=== PATIENT | female | born 1995 | race Caucasian/White ===

== ENCOUNTER 2021-06-27 16:24 | Emergency (ER) | payer OTHER, SELFPAY | END 2021-06-27 16:31 | disposition left against medical advice (07) | LOC: EXPCOLL 16:29 | PROVIDERS: Emergency Provider Nurse Practitioner | DX: Z53.21 Procedure and treatment not carried out due to patient leaving prior to being seen by health care provider (principal) | CPT/HCPCS: 99199 ==

== ENCOUNTER 2021-09-23 16:30 | Outpatient (RCR) | payer OTHER, SELFPAY ==
--- NOTE | 2021-08-31 17:09 | PTOPEVAL ---
Thank you for referring Arielle Lopez to [facility].? The patient is scheduled to be seen for therapy?2x/week for 8 weeks. Please review, sign, date and return this plan of care ANTHONY. I agree with and certify that the following plan of care is medically necessary. 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 She c/o swelling of left knee. She reports limitations with car transfers, mild limitations with steps and squatting motion. Reports only mild pain at night. Does not perform a fitness program. Pain Assessment Timing of Pain Assessment Timing of Pain Assessment Assessment Pain Scale Pain Scale Used Numeric (1 - 10) Self Report Pain Assessment Left Knee(s) Reported Pain Level 3 Pain Description Stabbing Pain Frequency Continuous Lowest Pain Intensity 0 Greatest Pain Intensity 3 Pain Aggravating Factors Exercise/Activity,Stair Climbing Pain Score Pain Score 3: Self Report Interventions Used Interventions Used By Clinicians Education,Exercise Pain Relief Interventions Used By Medication Patient Lower Extremity Range of Motion Knee Range of Motion Left Knee Flexion Range of Motion - Active 68 Knee Flexion Range of Motion - Passive 115 Knee Extension Range of Motion - Active 0 Knee Range of Motion Limitations Pain Knee Range of Motion Comments right knee flex: 115 dg Lower Extremity Muscle Strength Testing Hip Strength Right Hip Flexion Strength 4+ Good + Hip Extension Strength 4 Good Hip Abduction Strength 3 Fair Left Hip Flexion Strength 4 Good Hip Extension Strength 3- Fair - Hip Abduction Strength 3- Fair - Knee Strength Right Knee Flexion Strength 4+ Good + Knee Extension Strength 5 Normal Left Knee Flexion Strength 3+ Fair + Knee Extension Strength 5 Normal Ankle Strength Bilateral Ankle Dorsiflexion Strength 5 Normal Muscle Length Testing Muscle Length Testing Two-Joint Hip Flexor Shortened Muscles Short (R) Iliopsoas,Short (L) Iliopsoas,Short (R) Rectus Femor
--- NOTE | 2021-09-23 17:00 | PTOPEVAL ---
Physical Therapy Discharge Summary Thank you for referring Arielle Lopez to [facility].? Arielle has attended 6 therapy visits to address her knee pain. She reports improved pain, improved tolerance with daily task and improved limitations with work task. She demonstrates improved knee motion, improved LE strength and improved functional mobility. She has reached maximal potential with skilled therapy services at this time. Will DC skilled PT services. Please review, sign, date and return this discharge summary ANTHONY. I agree with and certify that the following plan of care is medically necessary. 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 Subjective Information Denies any knee pain recently. Query Text:As Reported By Patient/ Denies any limitation with Family her HEP. She is performing HEP 1-2x/wk. Denies c/o swelling of left knee. Denies any problems with steps, car transfer or work task. Pain Assessment Self Report Self Report Pain Level 0 Lower Extremity Range of Motion Left Knee Flexion Range of Motion - Active 120 Knee Extension Range of Motion - Active 0 Lower Extremity Muscle Strength Testing Hip Strength Right Hip Flexion Strength 5 Normal Hip Extension Strength 3+ Fair + Hip Abduction Strength 3 Fair Left Hip Flexion Strength 5 Normal Hip Extension Strength 3+ Fair + Hip Abduction Strength 3 Fair Knee Strength Right Knee Flexion Strength 5 Normal Knee Extension Strength 5 Normal Left Knee Flexion Strength 5 Normal Knee Extension Strength 5 Normal Special Tests-Lower Extremity Hip Special Tests Trendelenburg Sign Positive Left,Positive Right Hip Special Test Comments SLS: left 12 sec, poor trunk and LE control right: 3 sec, poor trunk and LE control Balance Assessment 5 Time Sit to Stand Time in Seconds 13 5 Time Sit to Stand Comments = LE WB, no pain change Gait Assessment Gait Pattern Assessment Gait Pattern Trendelenburg Gait Gait Pattern Observed Decreased Stride Length - Left ,Decreased Stride Length - Right,No Heel Strike - Left,No Heel Strike - Right Other Gait Observations slow meredith, precious knee valgus
== END 2021-09-24 10:15 | disposition home or self-care (01) ==
LOC: ANHPT 16:30
DX: M25.562 Pain in left knee (principal)
CPT/HCPCS: 97110; 97112; 97161; 97530